=== PATIENT | male | born 1985 | race African-American/Black ===

== ENCOUNTER 2023-07-15 17:57 | Emergency (ER) | payer MEDICAID ==
[~2023-07-15] VITALS: Ht 175.3 cm; Wt 102.1 kg
[2023-07-15 18:10] VITALS: BP 165/103; TEMP 99.2; O2SAT 100
[2023-07-15] MEDS ORDERED: CEFTRIAXONE 500 MG VIAL ONE (19:14)
[2023-07-15] MEDS ORDERED: AZITHROMYCIN 250 MG TABLET ONE (19:14)
[2023-07-15] MEDS ORDERED: LIDOCAINE /MPF 1% VIAL 5 ML VIAL ONE (19:16)
[2023-07-15] MEDS: CEFTRIAXONE 1 G VIAL IM ONE (19:18)
[2023-07-15] MEDS: AZITHROMYCIN 250 MG TABLET PO ONE (19:19)
[2023-07-16 23:22] LABS: HIV-1 p24 ANTIGEN NON REACTIVE (NONREACTIVE); HIV-1/2 ANTIBODY NON REACTIVE (NONREACTIVE)
[2023-07-17 07:08] LABS: RAPID PLASMA REAGIN QUAL. Non Reactive (Non Reactive)
[2023-07-17 22:08] LABS: CHLAMYDIA TRACHOMATIS NAA Negative (Negative); NEISSERIA GONORRHOEAE NAA Negative (Negative)
== END 2023-07-15 20:28 | disposition home or self-care (01) ==
LOC: ER 18:07
DX: J06.9 Acute upper respiratory infection, unspecified (principal); Z20.2 Contact with and (suspected) exposure to infections with a predominantly sexual mode of transmission
CPT/HCPCS: 99283; 87426; 86592; 86593; 96372; 87804 ×2; 87070; 36415; 87880; 87806; 87491; 87591; J0696; J3490; 86403-TC

== ENCOUNTER 2025-01-24 02:39 | Emergency (ER) | payer SELFPAY ==
[~2025-01-24] VITALS: Ht 177.8 cm; Wt 90.7 kg
[2025-01-24] MEDS ORDERED: LIDOCAINE 1% INJ 50 ML MDV IJ ONE (03:44)
[2025-01-24 03:55] VITALS: BP 119/91; TEMP 98.6; O2SAT 98
== END 2025-01-24 03:56 | disposition home or self-care (01) ==
LOC: ER 02:42
DX: S01.411A Laceration without foreign body of right cheek and temporomandibular area, initial encounter (principal); W03.XXXA Other fall on same level due to collision with another person, initial encounter; Y93.89 Activity, other specified; Y92.89 Other specified places as the place of occurrence of the external cause; Y99.9 Unspecified external cause status
CPT/HCPCS: 12011; 70486; 99284; J3490

== ENCOUNTER 2025-02-06 23:25 | Emergency (ER) | payer MEDICAID ==
[~2025-02-06] VITALS: Ht 177.8 cm; Wt 93.0 kg
[2025-02-06 23:44] VITALS: BP 149/99; TEMP 98.9; O2SAT 99
[2025-02-06] MEDS ORDERED: CEPH-570 PO (23:55)
[2025-02-06] MEDS ORDERED: DOXY-326 PO (23:55)
[2025-02-06] MEDS ORDERED: CEPHALEXIN MONOHYDRATE 500 MG CAPSULE PO ONE (23:57)
[2025-02-06] MEDS ORDERED: DOXYCYCLINE HYCLATE (100 MG) 100 MG TABLET ONE (23:58)
[2025-02-07] MEDS: DOXYCYCLINE HYCLATE (100 MG) 100 MG TABLET PO ONE (00:03)
[2025-02-07] MEDS: CEPHALEXIN MONOHYDRATE 500 MG CAPSULE PO ONE (00:03)
== END 2025-02-07 00:04 | disposition home or self-care (01) ==
LOC: ER 23:31
DX: S01.81XD Laceration without foreign body of other part of head, subsequent encounter (principal); Z48.02 Encounter for removal of sutures; X58.XXXD Exposure to other specified factors, subsequent encounter